=== PATIENT | female | born 1975 | race African-American/Black ===

== ENCOUNTER 2017-03-21 15:11 | Observation (INO) | payer MEDICAID ==
[~2017-03-21] VITALS: Ht 170.2 cm; Wt 70.3 kg
[2017-03-21] MEDS ORDERED: PREN-134 PO (15:28)
[2017-03-21] MEDS ORDERED: FOLI-43 PO (15:28)
== END 2017-03-21 16:40 | disposition home or self-care (01) ==
LOC: L&D 15:11
PROVIDERS: ADMIT Specialist; ATTEND Specialist
DX: O26.893 Other specified pregnancy related conditions, third trimester (principal); R10.9 Unspecified abdominal pain; Z3A.28 28 weeks gestation of pregnancy
CPT/HCPCS: 99281; G0378

== ENCOUNTER 2017-05-18 23:59 | Observation (INO) | payer MEDICAID ==
[~2017-05-18] VITALS: Ht 170.2 cm; Wt 77.1 kg
[~2017-05-18 23:59] MED LIST: FOLI-43 PO; PREN-134 PO
[2017-05-19] MEDS ORDERED: ALBU05 NEB (00:45)
[2017-05-19] MEDS ORDERED: SODIUM CHLORIDE 0.9% 1,000 ML IV NR (00:45)
[2017-05-19 01:29] LABS: CLARITY URINE CLEAR (CLEAR); COLOR URINE YELLOW (YELLOW); KETONES URINE NEGATIVE (NEGATIVE); LEUKOCYTE ESTERASE URINE 1+ (NEGATIVE); NITRITE URINE NEGATIVE (NEGATIVE); OCCULT BLOOD URINE NEGATIVE (NEGATIVE); PH URINE 6.5 (4.5-8.0); PROTEIN URINE NEGATIVE (NEGATIVE)
== END 2017-05-19 03:08 | disposition home or self-care (01) ==
LOC: L&D 23:59
PROVIDERS: ADMIT Specialist; ATTEND Specialist
DX: O26.893 Other specified pregnancy related conditions, third trimester (principal); R10.9 Unspecified abdominal pain; M79.605 Pain in left leg; O36.8130 Decreased fetal movements, third trimester, not applicable or unspecified; Z3A.37 37 weeks gestation of pregnancy
CPT/HCPCS: 76815; 76818; 81001; 96360; 99281; G0378; J7030; 96361

== ENCOUNTER 2024-06-25 22:36 | Emergency (ER) | payer MEDICAID ==
[~2024-06-25] VITALS: Ht 170.2 cm; Wt 68.0 kg
[~2024-06-25 22:36] MED LIST changes: +ALBU05 NEB
[2024-06-25 22:51] VITALS: BP 161/104; PULSE 103; RESP 18; TEMP 36.8; O2SAT 99
== END 2024-06-26 01:07 | disposition left against medical advice (07) ==
LOC: ER 22:36
DX: M62.838 Other muscle spasm (principal); Z53.21 Procedure and treatment not carried out due to patient leaving prior to being seen by health care provider

== ENCOUNTER 2024-12-07 12:11 | Emergency (ER) | payer MEDICAID ==
[~2024-12-07] VITALS: Ht 170.2 cm; Wt 83.0 kg
[2024-12-07 12:15] VITALS: O2SAT 99
[2024-12-07 12:43] LABS: BASOPHILS % 1.3 % (0.0-2.0); EOSINOPHILS % 4.5 % (0.0-5.0); HEMATOCRIT. 41.7 % (36.0-48.0); HEMOGLOBIN. 13.9 g/dL (12.0-16.0); LYMPHOCYTES % 33.6 % (20.0-50.0); MEAN PLATELET VOLUME 8.7 fl (7.4-10.4); MONOCYTES % 12.5 % (2.0-8.0); NEUTROPHILS % 48.1 % (40.0-76.0); PLATELET 229 x1000/uL (130-400); RED BLOOD CELL COUNT 4.59 mill/uL (4.2-5.4); RED CELL DISTRIBUTION WIDTH 13.1 % (11.6-14.6)
[2024-12-07 13:03] LABS: CREATININE 0.9 mg/dL (0.6-1.0); UREA NITROGEN BLOOD 7 mg/dL (9-23)
[2024-12-07 13:06] LABS: TROPONIN I HIGH SENSITIVITY < 4 ng/L (3.0-34)
[2024-12-07 13:12] LABS: INR 1.0
[2024-12-07] MEDS: SODIUM CHLORIDE 0.9% 1,000 ML IV ONE (13:25)
[2024-12-07] MEDS: MECLIZINE 25MG TABLET PO ONE (13:25)
[2024-12-07] MEDS: ONDANSETRON HCL 4MG/2ML INJ IV ONE (13:25)
[2024-12-07] MEDS: KETOROLAC 15MG/ML VIAL IV ONE (14:02)
[2024-12-07] MEDS ORDERED: IBUP-2029 MT (15:29)
[2024-12-07] MEDS ORDERED: ONDA4TAB50 MT (15:29)
[2024-12-07] MEDS ORDERED: MECL-299 MT (15:29)
[2024-12-07] MEDS: HYDROCODONE/ACETAMINOPHEN 5/325MG TABLET PO ONE (15:55)
[2024-12-07 16:14] VITALS: BP 149/95; PULSE 82; RESP 15; TEMP 36.9; O2SAT 99
== END 2024-12-07 16:16 | disposition home or self-care (01) ==
LOC: ER 12:11
DX: R07.89 Other chest pain (principal); R51.9 Headache, unspecified; J45.909 Unspecified asthma, uncomplicated; Z88.8 Allergy status to other drugs, medicaments and biological substances; Z91.010 Allergy to peanuts; Z79.899 Other long term (current) drug therapy
CPT/HCPCS: 99285; 96374; 70450; 71045; 96361; 96375; 80048; 85025; 85610; 85730; 84484; 36415; 93005; J1885; J8597; J2405; J7030